=== PATIENT | male | born 1985 | race Caucasian/White ===

== ENCOUNTER 2024-04-11 09:30 | Emergency (ER) | payer SELFPAY ==
[2024-04-11 09:33] VITALS: BP 145/98; PULSE 88; TEMP 36.5; O2SAT 96; BMI 38.7
[2024-04-11 09:39] VITALS: O2SAT 100
--- NOTE | 2024-04-11 09:39 | ED_ITS ---
HPI - Abdominal Pain General Chief Complaint: Abdominal Pain Stated Complaint: ABDOMINAL TRAUMA Time Seen by Provider: 04/11/24 09:38 Source: patient Mode of arrival: walk-in Limitations: no limitations History of Present Illness HPI narrative: This patient is here complaining of left anterior lateral rib pain. He states that Wednesday night/Wednesday morning he was playing soccer with some friends of his and was kicked in the ribs. He was not on the ground when the event occurred. He said it did not knock the wind out of him as a matter fact he said did not bother him and all until about an hour later. Since that time he said pain when he takes a deep breath or when he coughs. He has no history of pneumonia pneumothorax pulmonary disease. He denies any tobacco use. He has not been running a fever. He has not coughed up any blood. He has no other pain or discomfort or injury today. He is otherwise in good health is not on any medication. Related Data Allergies Allergy/AdvReac Type Severity Reaction Status Date / Time No Known Drug Allergies Allergy Verified 04/11/24 09:33 PFSH PFSH Social History Little interest or pleasure in doing things: not at all Feeling down, depressed, or hopeless: not at all Exam Narrative Exam Narrative: Well-hydrated well-nourished gentleman. Respiratory rate is normal and pulse oximetry normal. There is no respiratory distress. Examination of the chart torso and thorax shows no ecchymosis bruising deformity or discoloration. He does not have any subcutaneous emphysema in the area. The pain is over the anterior lateral ribs 6 7 and 8 but there is no obvious evidence of trauma or injury. Good breath sounds are noted bilaterally. There is no wheeze rales or rhonchi. Constitutional Vital Signs, click to edit/add: Last Vital Signs Temp 97.7 F 04/11/24 09:33 Pulse 88 04/11/24 09:33 Resp 16 04/11/24 09:33 BP 145/98 H 04/11/24 09:33 Pulse Ox 96 04/11/24 09:33 O2 Del Method Room Air 04/11/24 09:33 Course Vital Signs Vital signs: Vital Signs Temperature 97.7 F 04/11/24 09:33 Pulse Rate 88 04/11/24 09:33 Respiratory Rate 16 04/11/24 09:33 Blood Pressure 145/98 H 10/29/24 09:33 Pulse Oximetry 96 04/11/24 09:33 Oxygen Delivery Method Room Air 04/11/24 09:33 Temperature 97.7 F 04/11/24 09:33 Pulse Rate 88 04/11/24 09:33 Respiratory Rate 16 04/11/24 09:33 Blood Pressure 145/98 H 04/11/24 09:33 Pulse Oximetry 96 04/11/24 09:33 Oxygen Delivery Method Room Air 04/11/24 09:33 MDM - Abdominal Pain MDM Narrative Medical decision making narrative: Patient is x-ray confirms suspicion of nondisplaced fracture sixth rib. He will be placed on analgesics. Due to his work he may need some work restrictions I will discuss that further with Discharge Plan Discharge Chief Complaint: Abdominal Pain Clinical Impression: Left rib fracture Patient Disposition: Home, Self-Care Time of Disposition Decision: 10:48 Print Language: Slovenian Referrals: PRITESH TRONCOSO [Primary Care Provider] - 1 week
--- NOTE | 2024-04-11 09:44 | XR_ITS ---
The [address] [address] Patient Name: DEVON BULLOCK MRN: [id number] date: 1985 Sex: M Assigned Patient Location: ER Current Patient Location: ER Accession/Order Number: [id number] Exam Date: 04/11/2024 09:50 Report Date: 04/11/2024 10:17 At the request of: TIN BELLAMY Procedure: XR ribs LT min 3V w CXR1V EXAMINATION: XR ribs LT min 3V w CXR1V HISTORY: Left anterior lateral chest trauma ; left rib pain since injury 2 days ago COMPARISON: No relevant comparison available. FINDINGS: LUNGS: Distended lungs with mild opacity within lateral left lung base; atelectasis versus infiltrates. PLEURA: No pneumothorax, effusion, or pleural thickening. MEDIASTINUM: No visible mass or adenopathy. CARDIAC: No cardiomegaly or cardiac silhouette abnormality. RIBS: Suspect nondisplaced fracture of anterior lateral left sixth rib. OTHER: Negative. XR/XR ribs LT min 3V w CXR1V IMPRESSION: 1. Nondisplaced fracture of the anterolateral left sixth rib is suspected. 2. Mild left basilar atelectasis. Electronically authenticated by: TONI MENARD Date: 04/11/2024 10:17
[2024-04-11 10:06] VITALS: BP 140/100; PULSE 88; O2SAT 95
== END 2024-04-11 11:00 | disposition home or self-care (01) ==
PROVIDERS: Emergency Provider Emergency Medicine Emergency Medical Services; PCP Family Medicine
DX: S22.32XA Fracture of one rib, left side, initial encounter for closed fracture (principal); W50.1XXA Accidental kick by another person, initial encounter; Y93.66 Activity, soccer
CPT/HCPCS: 71101; 99283

== ENCOUNTER 2024-07-20 22:00 | Emergency (ER) | payer SELFPAY ==
[2024-07-20 22:06] VITALS: BP 148/93; PULSE 121; TEMP 38.9; O2SAT 95; BMI 39.1
--- OUTSIDE RECORDS SUMMARY | 2024-07-20 22:06 | XMS_ITS | CCD ---
Author Organization [facility] Care Team Providers Care Packaging Engineer Name Role Phone Fracisco Lopez Unavailable PAY ., DR DOWNS Attending Unavailable PAY ., DR DOWNS Consulting Unavailable PAY ., DR DOWNS Admitting Unavailable HOUSE, DR JONAS Primary Care Unavailable HOUSE, DR JONAS Admitting Unavailable HOUSE, DR JONAS Attending Unavailable HOUSE, DR JONAS Consulting Unavailable HOUSE, DR JONAS Primary Care Unavailable HOUSE, DR JONAS Attending Unavailable HOUSE, DR JONAS Consulting Unavailable GARFIELD, DR JONAS Primary Care Unavailable HOUSE, DR JONAS Admitting Unavailable VIDHI ., FRANCES Admitting Unavailable DERIAN, DR TONI Garland Consulting Unavailable VIDHI ., FRANCES Attending Unavailable HOUSE, DR JONAS Primary Care Unavailable ALEXANDRA ., TORRES BARBOSA Consulting Unavailabl e Medications Current Medications Medication Drug Class(es) Dates Sig (Normalized) Sig (Original) diclofenac sodium 75 mg delayed release oral tablet (1 source) Nonsteroidal Anti-inflammatory Drug take 1 tablet by mouth every twelve hours Diclofenac Sodium 75 MG 1 tablet as needed Orally Twice a day for 30 days Active Problems Active Problems Problem Classification Problem Date Documented Date Episodic/Chronic Abdominal pain (1 source) Epigastric pain; Translations: [Epigastric pain] Episodic E Codes: Fall (1 source) Fall (on) (from) other stairs and steps, initial encounter; Translations: [FALL ON FROM OTH STAIRS STEPS INIT] Onset: 08-07-2022 Episodic Esophageal disorders (1 source) Gastroesophageal reflux disease; Translations: [Gastro-esophageal reflux disease without esophagitis] Chronic Malaise and fatigue (4 sources) Other fatigue; Translations: [OTHER FATIGUE] Onset: 06-25-2022 Episodic Other nervous system disorders (1 source) Chronic pain; Translations: [Other chronic pain] Chronic Other nervous system disorders (2 sources) Other chronic pain; Translations: [OTHER CHRONIC PAIN] Onset: 09-18-2021 Resolved: 09-18-2021 Chronic Other nervous system disorders (1 source) Polyneuropathy, unspecified; Translations: [POLYNEUROPATHY UNSPECIFIED] Onset: 07-03-2022 Chronic Other nutritional; endocrine; and metabolic disorders (1 source) Obese class I; Translations: [Body mass index (BMI) 32.0-32.9, adult] Chronic Other nutritional; endocrine; and metabolic disorders (1 source) Abnormal weight gain; Translations: [ABNORMAL WEIGHT GAIN] Onset: 07-03-2022 Episodic Screening and history of mental health and substance abuse codes (1 source) Personal history of nicotine dependence; Translations: [PERSONAL HISTORY OF NICOTINE DEPEND] Onset: 08-07-2022 Episodic Spondylosis; intervertebral disc disorders; other back problems (2 sources) Cervical spondylosis without myelopathy; Translations: [Spondylosis without myelopathy or radiculopathy, cervical region] Onset: 09-18-2021 Resolved: 09-18-2021 Chronic Spondylosis; intervertebral disc disorders; other back problems (6 sources) Neck pain; Translations: [Cervicalgia] Onset: 08-30-2021 Resolved: 09-18-2021 Episodic Sprains and strains (1 source) Strain of muscle, fascia and tendon of lower back, initial encounter; Translations: [STRAIN MUSC FASC TENDON LW BACK INT] Onset: 08-07-2022 Episodic Superficial injury; contusion (1 source) Contusion of lower back and pelvis, initial encounter; Translations: [CONTUSION LOWER BACK PELVIS INITIAL] Onset: 08-07-2022 Episodic Unclassified (2 sources) LOW BACK PAIN, UNSPECIFIED; Translations: [LOW BACK PAIN, UNSPECIFIED] Onset: 08-07-2022 Past or Other Problems Problem Classification Problem Date Documented Da te Episodic/Chronic Other non-traumatic joint disorders (1 source) Pain in left shoulder; Translations: [PAIN IN LEFT SHOULDER] Onset: 09-02-2021 Episodic Unclassified (1 source) LOW BACK PAIN, UNSPECIFIED; Translations: [LOW BACK PAIN, UNSPECIFIED] Onset: 08-05-2022 Results Test Name Value Interpretation Reference Range Facility CT LSPINE WO CONon CT LSPINE WO CON EXAMINATION: CT LSPINE WO CON, 08/05/2022 2:24 PM EST HISTORY: Unspecified fall ; right lower back pain after falling COMPARISON: None. TECHNIQUE: CT of the lumbar spine was performed without IV contrast. CT dose reduction technique was used, including Automated Exposure Control. FINDINGS: PARASPINAL AREA: Normal with no visible mass. BONES: No fracture, pars defect, or osseous lesion. CERVICAL DISC LEVELS: 12-L1: No significant disc/facet abnormality, spinal stenosis, or foraminal stenosis. L1-L2: No significant disc/facet abnormality, spinal stenosis, or foraminal stenosis. L2-L3: No significant disc/facet abnormality, spinal stenosis, or foraminal stenosis. L3-L4: Mild central canal and bilateral foramen narrowing secondary to mild diffuse disc bulging. L4-L5: Mild/moderate central canal and bilateral foramen narrowing secondary to moderate diffuse disc bulging. L5-S1: Marked right, mild left foramen narrowing. No significant central canal narrowing. Mild diffuse disc bulging without significant disc height reduction. Moderate degenerative facet arthropathy, right greater than left. IMPRESSION: 1. No appreciable acute abnormality. 2. Degenerative changes of lower lumbar spine with marked foramen narrowing L5-S1 likely contributing to patient's symptoms. Consider nonemergent MRI follow-up of lumbar spine. Electronically authenticated by: TONI MENARD Date: 2022-08-05 15:27 Normal [facility] [place] XR CSPINE 2_3 VIEWSon 2022 XR CSPINE 2_3 VIEWS EXAMINATION: XR CSPINE 2_3 VIEWS HISTORY: Unspecified fall ; neck and back pain after falling COMPARISON: No relevant comparison available. FINDINGS: BONES: Straightening of the normal lordotic curvature. Lower cervical spine is obscured by shoulder structures. No appreciable fracture or spondylolisthesis. DISC SPACES: No significant disc height narrowing, subluxation, or endplate abnormality. PARASPINOUS: Negative. No paraspinous abnormality is seen. OTHER: Negative. IMPRESSION: 1. No appreciable acute abnormality or significant degenerative changes. The C7-T1 level is obstructed from view. Electronically authenticated by: TONI MENARD Date: 2022-08-05 15:21 Normal [facility] T4on 06-25-2022 T4 [Mass/Vol] 7.30 ug/dL Normal 4.50-12.10 [facility] Comment on above: Performed By: #### T , T4 #### [facility] [address] [place] [address] Dr. Vicente Zaidi TSHon 06-25-2022 TSH 1.107 uIU/mL Normal 0.358-3.740 [facility] Comment on above: Performed By: #### T SH, T4 #### [facility] [address] [place] [address] Dr. Vicente Zaidi CBC AUTO DIFFon 04-18-2022 BASO # 0.1 103/ul Normal 0.0-0.1 [facility] Comment on above: Performed By: #### C BC #### [facility] [address] [place] [address] Dr. Vicente Zaidi Basophils/100 WBC (Bld) 0.4 % Normal 0.2-2.0 [facility] [place] Comment on above: Performed By: #### C BC #### [facility] [address] [place] [address] Dr. Vicente Zaidi EO # 0.1 103/ul Normal 0.0-0.7 [facility] [place] Comment on above: Performed By: #### C BC #### [facility] [address] [place] [address] Dr. Vicente Zaidi Eosinophils/100 WBC (Bld) 0.9 % Normal 0.9-7.0 [facility] [place] Comment on above: Performed By: #### C BC #### [facility] [address] [place] [address] Dr. Vicente Zaidi Erythrocyte distribution width (RBC) [Ratio] 11.6 % Normal 11.0-15.0 [facility] [place] Comment on above: Performed By: #### C BC #### [facility] [address] [place] [address] Dr. Vicente Zaidi Hematocrit (Bld) [Volume fraction] 43.7 % Normal 42.0-54.0 [facility] [place] Comment on above: Performed By: #### C BC #### [facility] [address] [place] [address] Dr. Vicente Zaidi Hemoglobin (Bld) [Mass/Vol] 15.4 g/dL Normal 14.0-18.0 [facility] Comment on above: Performed By: #### C BC #### [facility] [address] [place] [address] Dr. Vicente Zaidi IG # 0.07 10e3/ul Critically high 0.00-0.03 [facility] Comment on above: Performed By: #### C BC #### [facility] [address] [place] [address] Dr. Vicente Zaidi IG % 0.5 % Normal 0.0-0.5 [facility] [place] Comment on above: Performed By: #### C BC #### [facility] [address] [place] [address] Dr. Vicente Zaidi LYMPH # 3.0 103/ul Normal 1.2-3.8 [facility] [place] Comment on above: Performed By: #### C BC #### [facility] [address] [place] [address] Dr. Vicente Zaidi Lymphocytes/100 WBC (Bld) 22.9 % Normal 20.5-60.0 [facility] [place] Comment on above: Performed By: #### C BC #### [facility] [address] [place] [address] Dr. Vicente Zaidi MANUAL DIFF REQ NO Normal [facility] Comment on above: Performed By: #### C BC #### [facility] [address] [place] [address] Dr. Vicente Zaidi MCH (RBC) [Entitic mass] 32.2 pg Normal 25.9-34.0 [facility] [place] Comment on above: Performed By: #### C BC #### [facility] [address] [place] [address] Dr. Vicente Zaidi MCHC (RBC) [Mass/Vol] 35.2 g/dL Normal 29.9-35.2 [facility] [place] Comment on above: Performed By: #### C BC #### [facility] [address] [place] [address] Dr. Vicente Zaidi MCV (RBC) [Entitic vol] 91.4 fL Normal 80.0-94.0 [facility] [place] Comment on above: Performed By: #### C BC #### [facility] [address] [place] [address] Dr. Vicente Zaidi MONO # 0.7 103/ul Normal 0.3-0.8 [facility] [place] Comment on above: Performed By: #### C BC #### [facility] [address] [address] [address] Vicente Zaidi Monocytes/100 WBC (Bld) 5.6 % Normal 1.7-12.0 [facility] Comment on above: Performed By: #### C BC #### [facility] [address] [address] [address] Vicente Zaidi NEUT # 9.1 103/ul Critically high 1.4-6.5 [facility] Comment on above: Performed By: #### C BC #### [facility] [address] [place] [address] Dr. Vicente Zaidi Neutrophils/100 WBC (Bld) 69.7 % Normal 43.0-75.0 [facility] Comment on above: Performed By: #### C BC #### [facility] [address] [place] [address] Dr. Vicente Zaidi Platelet mean volume (Bld) [Entitic vol] 9.9 fL Normal 9.5-13.5 [facility] Comment on above: Performed By: #### C BC #### [facility] [address] [place] [address] Dr. Vicente Zaidi PLT 243 103/ul Normal 150-450 [facility] Comment on above: Performed By: #### C BC #### [facility] [address] [place] [address] Dr. Vicente Zaidi RBC 4.78 106/ul Normal 4.70-6.10 [facility] Comment on above: Performed By: #### C BC #### [facility] [address] [place] [address] Dr. Vicente Zaidi WBC 13.0 103/ul Critically high 4.0-11.0 [facility] Comment on above: Performed By: #### C BC #### [facility] [address] [place] [address] Dr. Vicente Zaidi LIPID PROFILEon 04-18-2022 CHOL-HDL RATIO NORM SEE BELOW Normal [facility] Comment on above: Result Comment: 3.3 - 4.4 LOW RISK 4.4 - 7.1 AVERAGE RISK 7.1 - 11.0 MODERATE RISK >11.0 HIGH RISK Performed By: #### C MP, LIPID #### [facility] [address] [address] [address] Vicente Zaidi Cholesterol [Mass/Vol] 189 mg/dL Normal <=200 [facility] Comment on above: Performed By: #### C MP, LIPID #### [facility] [address] [address] [address] Vicente Zaidi Cholesterol in HDL [Mass/Vol] 51 mg/dL Normal 40-60 [facility] Comment on above: Performed By: #### C MP, LIPID #### [facility] [address] [address] [address] Vicente Zaidi Cholesterol in LDL [Mass/Vol] 121.0 mg/dL Normal [facility] Comment on above: Performed By: #### C MP, LIPID #### [facility] [address] [address] [address] Vicente Zaidi Cholesterol.total/C holesterol in HDL [Mass ratio] 3.7 {ratio} Normal [facility] Comment on above: Performed By: #### C MP, LIPID #### [facility] [address] [address] [address] Vicente Zaidi HDL NORMAL > or = 60 mg/dl - LOW CARDIOVASCULAR RISK <40 mg/dl - HIGH CARDIOVASCULAR RISK Normal [facility] Comment on above: Performed By: #### C MP, LIPID #### [facility] [address] [address] [address] Vicente Zaidi LDL CALC NORMAL SEE BELOW Normal [facility] Comment on above: Result Comment: <100 mg/dl OPTIMAL 100 - 129 mg/dl NEAR OR ABOVE OPTIMAL 130 - 159 mg/dl BORDERLINE HIGH 160 - 189 mg/dl HIGH >190 mg/dl VERY HIGH Performed By: #### C MP, LIPID #### [facility] [address] [address] [address] Vicente Zaidi Triglyceride [Mass/Vol] 85 mg/dL Normal <=150 [facility] Comment on above: Performed By: #### C MP, LIPID #### [facility] [address] [place] [address] Dr. Vicente Zaidi VLDL CALC 17.0 mg/dL Normal [facility] Comment on above: Performed By: #### C MP, LIPID #### [facility] [address] [place] [address] Dr. Vicente Zaidi PROF 14(COMP METB)on 022 Albumin [Mass/Vol] 4.0 g/dL Normal 3.4-5.0 [facility] Comment on above: Performed By: #### C MP, LIPID #### [facility] [address] [place] [address] Dr. Vicente Zaidi Albumin/Globulin [Mass ratio] 1.1 {ratio} Normal [facility] Comment on above: Performed By: #### C MP, LIPID #### [facility] [address] [place] [address] Dr. Vicente Zaidi ALP [Catalytic activity/Vol] 64 U/L Normal 46-116 [facility] Comment on above: Performed By: #### C MP, LIPID #### [facility] [address] [place] [address] Dr. Vicente Zaidi ALT [Catalytic activity/Vol] 36 U/L Normal 16-63 [facility] Comment on above: Performed By: #### C MP, LIPID #### [facility] [address] [place] [address] Dr. Vicente Zaidi Anion gap [Moles/Vol] 5.2 mmol/L Normal [facility] Comment on above: Performed By: #### C MP, LIPID #### [facility] [address] [place] [address] Dr. Vicente Zaidi AST [Catalytic activity/Vol] 16 U/L Normal 15-37 [facility] Comment on above: Performed By: #### C MP, LIPID #### [facility] [address] [place] [address] Dr. Vicente Zaidi Bilirubin [Mass/Vol] 0.6 mg/dL Normal 0.2-1.0 [facility] Comment on above: Performed By: #### C MP, LIPID #### [facility] [address] [place] [address] Dr. Vicente Zaidi Calcium [Mass/Vol] 9.0 mg/dL Normal 8.5-10.1 [facility] Comment on above: Performed By: #### C MP, LIPID #### [facility] [address] [place] [address] Dr. Vicente Zaidi Chloride [Moles/Vol] 102 mmol/L Normal 98-107 [facility] Comment on above: Performed By: #### C MP, LIPID #### [facility] [address] [place] [address] Dr. Vicente Zaidi CO2 [Moles/Vol] 32.6 mmol/L Critically high 21.0-32.0 [facility] Comment on above: Performed By: #### C MP, LIPID #### [facility] [address] [place] [address] Dr. Vicente Zaiid Creatinine [Mass/Vol] 0.84 mg/dL Normal 0.70-1.30 [facility] Comment on above: Performed By: #### C MP, LIPID #### [facility] [address] [place] [address] Dr. Vicente Zaidi EGFR-AF SWEDISH >60 Normal >=60 [facility] Comment on above: Performed By: #### C MP, LIPID #### [facility] [address] [place] [address] Dr. Vicente Zaidi EGFR-NON AF SWEDISH >60 Normal >=60 [facility] Comment on above: Performed By: #### C MP, LIPID #### [facility] [address] [place] [address] Dr. Vicente Zaidi Globulin (S) [Mass/Vol] 3.8 g/dL Normal [facility] Comment on above: Performed By: #### C MP, LIPID #### [facility] [address] [place] [address] Dr. Vicente Zaidi Glucose [Mass/Vol] 98 mg/dL Normal 74-106 [facility] Comment on above: Performed By: #### C MP, LIPID #### [facility] [address] [address] [address] Vicente Zaidi Potassium [Moles/Vol] 3.8 mmol/L Normal 3.5-5.1 [facility] Comment on above: Performed By: #### C MP, LIPID #### [facility] [address] [address] [address] Vicente Zaidi Protein [Mass/Vol] 7.8 g/dL Normal 6.4-8.2 [facility] Comment on above: Performed By: #### C MP, LIPID #### [facility] [address] [address] [address] Vicente Zaidi Sodium [Moles/Vol] 136 mmol/L Normal 136-145 [facility] Comment on above: Performed By: #### C MP, LIPID #### [facility] [address] [address] [address] Vicente Zaidi Urea nitrogen [Mass/Vol] 15.0 mg/dL Normal 7.0-18.0 [facility] Comment on above: Performed By: #### C MP, LIPID #### [facility] [address] [address] [address] Vicente Zaidi Urea nitrogen/Creatinine [Mass ratio] 17.9 mg/mg Normal [facility] Comment on above: Performed By: #### C MP, LIPID #### [facility] [address] [address] [address] Vicente Zaidi XR cerv spine AP/LAT/FLX/EXT on 09-18-2021 XR cerv spine AP/LAT/FLX/EXT [facility] [employer] Other XR cerv spine AP/LAT/FLX/EXT [facility] [employer] Other XR cerv spine AP/LAT/FLX/EXT [address] [place] [address] [employer] Other XR cerv spine AP/LAT/FLX/EXT [address] [employer] Other XR cerv spine AP/LAT/FLX/EXT XRay Report [facility] Other XR cerv spine AP/LAT/FLX/EXT Signed [facility] Other XR cerv spine AP/LAT/FLX/EXT Patient: Otto Alvarez MR#: [id number] [facility] Other XR cerv spine AP/LAT/FLX/EXT 40 [facility] Other XR cerv spine AP/LAT/FLX/EXT : 1985 Acct:[id number] [facility] Other XR cerv spine AP/LAT/FLX/EXT Age/Sex: 35 / M ADM Date: 09/18/21 [facility] Other XR cerv spine AP/LAT/FLX/EXT Loc: [facility] Room: Type: [facility] Other XR cerv spine AP/LAT/FLX/EXT Attending Dr: Fracisco Lopez MD [facility] Other XR cerv spine AP/LAT/FLX/EXT Ordering Provider: Fracisco Lopez MD [facility] Other XR cerv spine AP/LAT/FLX/EXT Date of Service: 09/18/21 [facility] Other XR cerv spine AP/LAT/FLX/EXT XR/XR cerv spine AP/LAT/FLX/EXT: Cervical pain [facility] Other XR cerv spine AP/LAT/FLX/EXT Copies to: Fracisco Lopez MD [facility] Other XR cerv spine AP/LAT/FLX/EXT AP with lateral neutral, flexion extension views of thecervical spine [facility] Other XR cerv spine AP/LAT/FLX/EXT HISTORY: Cervical spine pain with radiculopathy. The bilateral upper extremity decreased range of [facility] Other XR cerv spine AP/LAT/FLX/EXT motion. [facility] Other XR cerv spine AP/LAT/FLX/EXT COMPARISON: None [facility] Other XR cerv spine AP/LAT/FLX/EXT There are straightening of cervical lordosis. [facility] Other XR cerv spine AP/LAT/FLX/EXT No acute cervical spine fracture identified. [facility] Other XR cerv spine AP/LAT/FLX/EXT No cervical spine listhesis identified. [facility] Other XR cerv spine AP/LAT/FLX/EXT Mild C4-5 C5-6 disc space narrowing present. [facility] Other XR cerv spine AP/LAT/FLX/EXT Facets are in adequate alignment. [facility] Other XR cerv spine AP/LAT/FLX/EXT No hypermobility identified with flexion and extension views. Dens is intact. [facility] Other XR cerv spine AP/LAT/FLX/EXT The craniocervical junction is unremarkable. [facility] Other XR cerv spine AP/LAT/FLX/EXT No paraspinal soft tissue abnormality seen. [facility] Other XR cerv spine AP/LAT/FLX/EXT XR/XR cerv spine AP/LAT/FLX/EXT [facility] Other XR cerv spine AP/LAT/FLX/EXT IMPRESSION: No hypermobility. Mild spondylosis. [facility] Other XR cerv spine AP/LAT/FLX/EXT Impression dictated by: Himanshu Morales M.D.09/18/2021 10:35 AM [facility] Other XR cerv spine AP/LAT/FLX/EXT Dictation Location: [place] [address] [facility] Other XR cerv spine AP/LAT/FLX/EXT Transcribed By: TAWNY 09/18/21 1035 [facility] [employer] Other XR cerv spine AP/LAT/FLX/EXT Dictated By: Himanshu Morales DO 09/18/21 1033 [facility] [employer] Other XR cerv spine AP/LAT/FLX/EXT Signed By: [facility] Other XR cerv spine AP/LAT/FLX/EXT 09/18/21 1034 [employer] [facility] [employer] Other XR cerv spine AP/LAT/FLX/EXT [facility] [place] [address] [place] [address] XRay Report Signed Patient: Otto Alvarez MR#: [id number] 41 : 1985 Acct:[id number] Age/Sex: 35 / M ADM Date: 09/18/21 Loc: [facility] Room: Type: [facility] Attending Dr: Fracisco Lopez MD Ordering Provider: Fracisco Lopez MD Date of Service: 09/18/21 XR/XR cerv spine AP/LAT/FLX/EXT: Cervical pain Copies to: Fracisco Lopez MD AP with lateral neutral, flexion extension views of thecervical spine HISTORY: Cervical spine pain with radiculopathy. The bilateral upper extremity decreased range of motion. COMPARISON: None There are straightening of cervical lordosis. No acute cervical spine fracture identified. No cervical spine listhesis identified. Mild C4-5 C5-6 disc space narrowing present. Facets are in adequate alignment. No hypermobility identified with flexion and extension views. Dens is intact. The craniocervical junction is unremarkable. No paraspinal soft tissue abnormality seen. XR/XR cerv spine AP/LAT/FLX/EXT IMPRESSION: No hypermobility. Mild spondylosis. Impression dictated by: Himanshu Morales M.D.09/18/2021 10:35 AM Dictation Location: [place] [address] Transcribed By: [facility] 09/18/21 1035 Dictated By: Himanshu Morales DO 09/18/21 1033 Signed By: 09/18/21 1035 [facility] Outside Colonoscopyon 2021 Outside Colonoscopy [id number]#[id number]:127 [facility] Reminderson 08-14-2021 Reminders -- From: Tania Bhagat LPN To: [facility] - Clinical; Sent: 08/14/2021 10:52:00 EST Show up: 07/16/2031 07:00:00 EST Subject: colonoscopy recall Due Date/Time: 08/14/2031 07:00:00 EST Reminder/Recall Patient is due for screening colonoscopy 08/14/2031. [facility] Consent for Procedure/Surger yon 07-23-2021 Consent for Procedure/Surgery [id number] E8#[id number]:127 [facility] Ambulatory Visit Summaryon 0 07-22-2021 Ambulatory Visit Summary OTTO ALVAREZ :1985 Visit Date:07/22/2021 Ambulatory Visit Instructions Your Diagnosis Rectal bleeding Change in bowel habits Anal skin tag BMI 36.0-36.9,adult Your Care Team Attending Physician - SABRINA ZAVALA, Adrián Garland Primary Care Physician - Yahir Jewell DO This Is Your Medications List Contact prescribing physician if questions or concerns polyethylene glycol 3350 (MiraLax) Procedures Performed Appendectomy, Closed fracture of left leg, Repair of left inguinal hernia, Tonsillectomy with adenoidectomy. Discharge Vitals Temperature (Temporal Artery) 36.4 ?C Heart Rate (Peripheral) 80 Respiratory Rate 16 Blood Pressure 144/90 Height 182.88 cm Height 182.9 cm Weight 123.6 kg Weight 123.6 kg BMI 36.96 Medications What How Much When Instructions Unchanged polyethylene glycol 3350 (MiraLax) 17 Gram By Mouth Every day Contact prescribing physician if questions or concerns Medications and Immunizations Administered Not Given influenza virus vaccine, inactivated, Patient Refuses Allergies No Known Allergies No Known Medication Allergies Problems Ongoing - Any problem that you are currently receiving treatment for. Anal skin tag BMI 36.0-36.9,adult Change in bowel habits Hemorrhoid HTN (hypertension) Rectal bleeding Normal [facility] Physician Referralon 022 Physician Referral [phone] [id number] Normal [facility] Encounters Encounter Date Encounter Type Care Provider Facility Start: 08-05-2022 End: 08-05-2022 ambulatory FRANCES Eric Facility:[facility] Start: 06-25-2022 End: 06-26-[address] YAHIR JEWELL Facility:[facility] Start: 04-23-2022 Encounter for genera l adult medical examination without abnormal findings DR YAHIR JEWELL [facility] [place] Start: 04-18-2022 End: 04-19-[address] YAHIR JEWELL Facility:[facility] Start: 04-18-2022 End: 04-19-2022 Encounter for general adult medical examination without abnormal findings DR YAHIR JEWELL Facility:[facility] Start: 09-18-2021 End: 09-18-2021 ambulatory Fracisco Lopez Other [facility] Start: 09-18-2021 Office outpatient ne w 45 minutes Fracisco Lopez [facility] Start: 08-30-2021 End: 08-30-[address] HIMANSHU MARSHALL . Facility:[facility] Payers Date Payer Category Payer Unknown [id number] [id number] [id number] 1984 Unknown [id number] [id number] [id number] 1984 Unknown [id number] 2.16.84 [id number] 1984 Unknown [id number] 2.16.84 [id number] 1959 Unknown [id number] 1959 Unknown Social History Date Type Detail Facility Sex Assigned At [facility] Other Evaluation note 09-18-2021 Note Date & Type Note Facility 09-18-2021 Evaluation note Encounter Date Diagnosis Assessment Notes Sep, Cervical pain (ICD-10 - M54.2) Sep, Cervical spondylosis without myelopathy (ICD-10 - M47.812) Patients primary complaint today is cervial pain. He notes these symptoms are intermittent, currently no significant pain. Cervical x-rays were updated and reviewed personally, no significant degenerative changes, without acute findings. It was explained that these would be reviewed by radiology as well. I believe he is experiencing periodic exertional muscle strain/spasms based on activity, possibly secondary to the nature of his work. We chela start treatment conservatively . I will refer the patient to physical therapy and will prescribe Diclofenac Sodium 75 MG twice daily. Risks and side effects of this medication was discussed in detail with the patient who voiced understanding. Patient was encouraged to apply Voltaren Gel to the area and apply as needed as well as consider using TENS unit when his symptoms are notable. We will follow up with him after therapy and consider further treatment if needed. Anatomy of spine discussed in detail with patient in regards to patients condition. Sep, Chronic pain (ICD-10 - G89.29) Sep, Other Above note written by Malik Alvarez MA, Senior Tax Manager. Edited and approved by Dr. Fracisco Lopez MD. Medical decision making shows a new problem to me with further workup planned or suggested with the potential for extensive treatment options that were considered with the most applicable given this patient's situation as noted above. Treatment options considered include a combination of physical therapy approaches, pharmacologic management, and interventional procedures. Those most applicable to the patient were discussed at this time. Risk of complications and/or morbidity and mortality is high given that acute and chronic pain poses a threat to life and bodily function if undertreated, poorly treated or with failure to maintain adequate treatment and timely followup. Given the serious and fluctuating nature of pain with extensive consideration for whenever pain changes, there always remains the possibility of prolonged functional impairment requiring constant patient reassessment and high-level medical decision making. The amount and complexity of data reviewed is high given that patient labs, radiology reports, and other test were obtained, reviewed and summarized as applicable from the physician portal and/or outside medical records. Pertinent positive and negative findings were considered in medical decision-making. [facility] Clinical Note 07-22-2021 Note Date & Type Note Facility 07-22-2021 Note Chief Complaint consultation for hemorrhoids HPI Staff 35 year old male presents on consultation from Urgent Care for hemorrhoids. History of Present Illness 35 yo male referred for possible external hemorrhoid; reports h/o harder, firm stool, requiring straining; then developed rectal bleeding for 5 days, with bms, in toilet bowel and with wiping; no pain, no N/V; no feeling of hemorrhoid prolapse or swelling; seen at Urgent care; felt patient had external hemorrhoid, no active bleeding noted; given Miralax; reports stools softer; no more blood noted; no previous colonoscopy; abdominal operations significant for remote open appendectomy and LIHR. Review of Systems PHQ Score Initial Depression Screen Score: 0 ROS - Provider Constitutional: no fever, no sweats, no weight loss. Eyes: no glasses, no blurred vision, no visual loss. ENMT: no dentures, no hoarseness, no swallowing difficulties, no hearing loss, no ear infection(s), no nose bleeds. Cardiovascular: normal blood pressure, no chest pain, regular heartbeat, no heart murmur. Respiratory: no shortness of breath, no cough, no asthma, no wheezing. Gastrointestinal: no nausea, no vomiting, no diarrhea, no constipation, yes blood in stool, yes change in bowel habits, no abdominal pain, no hepatitis. Genitourinary: no kidney stones, no urine infection, no dysuria. Musculoskeletal: no pain, no weakness. Skin: no changing moles, no rash, no skin lumps. Neurologic: no seizures, no epilepsy, no headache. Psychiatric: no emotional or psychiatric problem. Heme/Lymph: no bleeding problems, no anemia, no blood clots, no transfusions. Allergy/Immunologic: no swollen lymph nodes/glands, no IV drug abuse. Other: Additional ROS info: Except as noted in the above Review of Systems and in the History of Present Illness, all other systems have been reviewed and are negative or noncontributory. Physical Exam Vitals & Measurements T: 36.4 ?C(Temporal Artery) HR: 80(Peripheral) RR: 16 BP: 144/90 HT: 182.88 cm HT: 182.9 cm WT: 123.6 kg WT: 123.6 kg BMI: 36.96 HEENT: normal conjunctiva, sclera clear, no scleral icterus, EOM intact, PERRLA, oral mucosa moist without lesions. Neck: trachea midline, no mass, symmetric, no thyromegaly or nodules, no adenopathy Respiratory: lungs CTA, respirations non labored. Cardiovascular: regular rate and rhythm, no murmur, no pedal edema or varicosities. Gastrointestinal: obese non distended, no tenderness, no masses, no palpable hernias, diastasis recti no, no hepatosplenomegaly; normal bs rectal: external skin tag, no fissure, no mass or blood. l gait, digits and nails without infection, nodes, cyanosis, clubbing. Skin: no rashes, no lesions, no ulcers, no subcutaneous nodules, induration. Psychiatric/Neuro: oriented to time, place, person, judgement normal, affect appropriate for age, insight intact, no focal deficits. Tests: , review of old records completed, Discussed surgical options, risks, and possible complications with patient. Assessment/Plan 1. Rectal bleeding (K62.5: Hemorrhage of anus and rectum) plan colonoscopy with anesthesia for further evaluation, informed consent obtained. 2. Change in bowel habits (R19.4: Change in bowel habit) see # 1 3. Anal skin tag (K64.4: Residual hemorrhoidal skin tags) no irritation or bleeding 4. BMI 36.0-36.9,adult (Z68.36: Body mass index [BMI] 36.0-36.9, adult) recommend diet and exercise. Follow-up No qualifying data available Problem List/Past Medical History Ongoing Anal skin tag BMI 36.0-36.9,adult Change in bowel habits Hemorrhoid Rectal bleeding Historical No qualifying data Procedure/Surgical History Appendectomy, Closed fracture of left leg, Repair of left inguinal hernia, Tonsillectomy with adenoidectomy. Medications MiraLax, 17 gm, Oral, Daily Allergies No Known Allergies No Known Medication Allergies Social History Alcohol - Denies Alcohol Use, 07/22/2021 Past, Beer, Daily, 07/22/2021 Substance Abuse - Denies Substance Abuse, 07/22/2021 Tobacco Former smoker, quit more than 30 days ago Tobacco Use:. Former smokeless tobacco user, quit more than 30 days ago Smokeless Tobacco Use:. Cigarettes, Oral, 2 per day. Started age 16.0 Years. Stopped age 29 Years., 07/22/2021 Family History Alcoholism: Father. Hypertension: Mother. Liver cancer: Mother. Stroke: Father. [facility] Comment on above: Result Comment: Elec tronically Signed By: SABRINA ZAVALA, Adrián Mosley\Date and Time Signed: 07/22/21 14:39 EST History general Narrative - Reported Note Date & Type Note Facility History general Narrative - Reported Type Surgical History APPENDECTOMY Surgical History HERNIA REPAIR Surgical History TONSILLECTOMY Surgical History LEFT LEG [facility] Other Summary Purpose Family History No Family History Records FoundNo Family History Records FoundNo Family History Records Found Advance Directives No Advanced Directives Records FoundNo Advanced Directives Records FoundNo Advanced Directives Records Found Additional Source Comments (unrecognized sect ion and content) No Status Records FoundNo Status Records FoundNo Status Records Found INFORMATION SOURCE (unrecogn ized section and content) DATE CREATED AUTHOR 08/31/2021 [facility] DATE CREATED AUTHOR AUTHOR'S ORGANIZ ATION 09/25/2021 [facility] DATE CREATED AUTHOR AUTHOR'S ORGANIZ ATION 08/13/2022 [facility] REASON FOR VISIT (unrecogniz ed section and content) SELF REF NECK & BACK PAIN WX WILL BRING DISC FOR RECORDS PERTAINING TO PATIENTS WHO ARE OR HAVE BEEN ENROLLED IN A CHEMICAL DEPENDENCY/SUBSTANCEABUSE PROGRAM, SOME INFORMATION MAY BE OMITTED. This clinical summary was aggregated from multiple sources. Caution should be exercised in using it in the provision of clinical care. This summary normalizes information from multiple sources, and as a consequence, information in this document may materially change the coding, format and clinical context of patient data. In addition, data may be omitted in some cases. CLINICAL DECISIONS SHOULD BE BASED ON THE PRIMARY CLINICAL RECORDS. [employer] [facility]. provides no warranty or guarantee of the accuracy or completeness of information in this document.
--- NOTE | 2024-07-20 22:17 | XR_ITS ---
The [address] [address] Patient Name: DEVON BULLOCK MRN: [id number] date: 1985 Sex: M Assigned Patient Location: ER Current Patient Location: ER Accession/Order Number: [id number] Exam Date: 07/20/2024 22:28 Report Date: 07/20/2024 22:50 At the request of: DA MAYORGA Procedure: XR chest 1V EXAM: XR chest 1V TECHNIQUE: Single AP view chest HISTORY: cough COMPARISON: 04/11/2024 FINDINGS: The heart and mediastinum are unremarkable. The lung singer are clear of any acute infiltrate, effusion or mass. No acute bony abnormality. XR/XR chest 1V IMPRESSION: No acute pulmonary disease. Electronically authenticated by: SELAM MAN Date: 07/20/2024 22:50
--- NOTE | 2024-07-20 22:18 | ED.URI1 ---
HPI - URI/Sore Throat General Chief Complaint: Upper Respiratory Infection Stated Complaint: FEVER Time Seen by Provider: 07/20/24 22:01 Source: patient Limitations: no limitations History of Present Illness HPI Narrative: 38-year-old male presents for cough and this time he has been sick for about 2 days. He is also has bodyaches and he thinks he might have influenza. No vomiting or diarrhea. His states that he got sick around [place] time, about 6 weeks ago, and his cough never went away completely. Related Data Allergies Allergy/AdvReac Type Severity Reaction Status Date / Time No Known Drug Allergies Allergy Verified 07/20/24 22:13 Review of Systems ROS Narrative A ten point review of systems is negative except as noted above. PFSH PFSH Social History Little interest or pleasure in doing things: not at all Feeling down, depressed, or hopeless: not at all Exam Narrative Exam Narrative: Nurses note and vital signs reviewed and patient is not hypoxic. General: The patient appears well and in no apparent distress. Patient is resting comfortably on cart. Skin: Warm, dry, no pallor noted. There is no rash noted. Head: Normocephalic, atraumatic Eye: Normal conjunctiva, no drainage Ears, Nose, Mouth, and Throat: oral mucosa is moist. Nares patent. Cardiovascular: Regular Rate and Rhythm Respiratory: Patient is in no distress, no accessory muscle use, lungs are clear to auscultation, no wheezing, rales or rhonchi Back: non-tender GI: Soft and nontender Musculoskeletal: The patient has no evidence of calf tenderness, no pitting edema, symmetrical pulses noted bilaterally Neurological: A&O, normal speech Psychiatric: Cooperative Constitutional Vital Signs, click to edit/add: Last Vital Signs Temp 102.0 F H 07/20/24 22:06 Pulse 121 H 07/20/24 22:06 Resp 20 07/20/24 22:06 BP 148/93 H 07/20/24 22:06 Pulse Ox 95 07/20/24 22:06 O2 Del Method Room Air 07/20/24 22:06 Course Vital Signs Vital signs: Vital Signs Temperature 102.0 F H 07/20/24 22:06 Pulse Rate 121 H 07/20/24 22:06 Respiratory Rate 20 07/20/24 22:06 Blood Pressure 148/93 H 07/20/24 22:06 Pulse Oximetry 95 07/20/24 22:06 Oxygen Delivery Method Room Air 07/20/24 22:06 Temperature 102.0 F H 07/20/24 22:06 Pulse Rate 121 H 07/20/24 22:06 Respiratory Rate 20 07/20/24 22:06 Blood Pressure 148/93 H 07/20/24 22:06 Pulse Oximetry 95 07/20/24 22:06 Oxygen Delivery Method Room Air 07/20/24 22:06 MDM - URI/Sore Throat MDM Narrative Medical decision making narrative: COVID and chest x-ray are negative but he is positive for influenza. He was given a work note. Treatment diagnosis and follow-up were discussed with the patient. Differential Diagnosis Differential diagnosis: Likely upper respiratory infection, viral infection, influenza and other (COVID, pneumonia) Lab Data Attestation: I reviewed the patient's lab results. Labs: Lab Results 07/20/24 Range/Units 22:10 Influenza Type A Ag Positive A Influenza Type B Ag Negative SARS-CoV-2 Ag (CV2AG) Negative (NEGATIVE) Imaging Data Chest x-ray: Radiologist's impression: ITS Impressions Chest X-Ray 07/20/24 22:17 IMPRESSION: No acute pulmonary disease. Electronically authenticated by: SELAM MAN Date: 07/20/2024 22:50 Discharge Plan Discharge Chief Complaint: Upper Respiratory Infection Clinical Impression: Influenza Patient Disposition: Home, Self-Care Time of Disposition Decision: 23:05 Condition: Good Mode of Transportation: Private Vehicle Print Language: Serbian Instructions: Influenza (ED) Referrals: Physician,Non-Staff, MD [Primary Care Provider] - 1 week
[2024-07-20] MEDS: IBUPROFEN 400 MG TABLET 800 MG PO (22:40)
[2024-07-20 23:00] LABS: Influenza Virus A Antigen Positive; Influenza Virus B Antigen Negative; Internal Control Within Normal Limits
[2024-07-20 23:01] LABS: Internal Control Within Normal Limits; SARS-CoV-2 Ag NEGATIVE (NEGATIVE)
== END 2024-07-20 23:17 | disposition home or self-care (01) ==
PROVIDERS: Emergency Provider Emergency Medicine
DX: J10.1 Influenza due to other identified influenza virus with other respiratory manifestations (principal); R50.9 Fever, unspecified
CPT/HCPCS: 71045; 87804; 87811; 99284